=== PATIENT | male | born 1975 | race Hispanic/Latino ===

== ENCOUNTER 2025-01-27 11:56 | Emergency (ER) | payer OTHER ==
[~2025-01-27] VITALS: Ht 188 cm; Wt 132.4 kg
[2025-01-27 12:08] VITALS: TEMP 98.2
[2025-01-27] MEDS ORDERED: ASPIRIN 81 MG CHEW TAB ONE (12:51)
[2025-01-27] MEDS: ASPIRIN 81 MG CHEW TAB PO ONE (12:56)
[2025-01-27] MEDS: Morphine 4mg INJECTION 4 MG/ML INJ IV ONE (13:41)
[2025-01-27 15:20] VITALS: PULSE 82; RESP 20; O2SAT 97
== END 2025-01-27 15:58 | disposition home or self-care (01) ==
LOC: FSED 12:22
DX: R11.0 Nausea (principal); R07.89 Other chest pain; R42 Dizziness and giddiness; I10 Essential (primary) hypertension; E78.5 Hyperlipidemia, unspecified
CPT/HCPCS: 71046; 80053; 84484; 85025; 85379; 93005; 99283; J2270